=== PATIENT | male | born 1975 | race African-American/Black ===

== ENCOUNTER → 2025-04-26 | Day surgery (SDC) | payer MEDICARE ==
[~2025-04-26] MED LIST: AMLODIPINE BESY10 MG PO; FOLIC ACID PO; FUROSEMIDE40 MG PO; HYDRALAZINE HCL50 MG PO; IRON PO; LIDOCAINE HCL 2% LOCAL INJ 5 ML SDV VIAL INJ ONE; MIDAZOLAM HCL 2 MG/2 ML VIAL ONE; PHENYLEPHRINE HCL 1% 10 MG/ML VIAL ONE; PROPOFOL IV EMULSION 50 ML IV ONE; ULORIC40 MG PO; VITAMIN B121000 MCG PO; VITAMIN D3 PO
[2025-04-26] MEDS: SODIUM CHLORIDE 0.9% 500ML 500 ML ONE (11:04)
[2025-04-26 11:26] LABS: BASOPHILS % 0.5 % (0.0-1.0); EOSINOPHILS % 0.3 % (0.0-6.0); LYMPHOCYTES % 23.3 % (18.0-39.1); MONOCYTES % 9.4 % (4.4-11.3); NEUTROPHILS % 66.3 % (38.7-80.0); RED CELL DISTRIBUTION WIDTH 12.2 % (11.7-14.4)
[2025-04-26 11:33] LABS: INR 1.06
[2025-04-26 11:37] LABS: EST GLOMERULAR FILTRATION RATE 9.0 ML/MIN (>=60)
[2025-04-26 12:47] VITALS: TEMP 97.6
[2025-04-26 13:10] VITALS: BP 115/73; PULSE 76; RESP 18; O2SAT 99
== END | disposition home or self-care (01) ==
LOC: OR 10:39
PROVIDERS: ATTEND Internal Medicine Gastroenterology
DX: R63.4 Abnormal weight loss (principal); D12.3 Benign neoplasm of transverse colon; K29.50 Unspecified chronic gastritis without bleeding; K44.9 Diaphragmatic hernia without obstruction or gangrene; K57.30 Diverticulosis of large intestine without perforation or abscess without bleeding; I12.0 Hypertensive chronic kidney disease with stage 5 chronic kidney disease or end stage renal disease; N18.6 End stage renal disease; E78.5 Hyperlipidemia, unspecified; Z01.810 Encounter for preprocedural cardiovascular examination; Z79.899 Other long term (current) drug therapy; Z68.34 Body mass index [BMI] 34.0-34.9, adult
CPT/HCPCS: 36415; 43239; 45385; 80048; 85025; 85610; 85730; 93005; J2003; J2250; J2371; J2704; J7040; 45378